=== PATIENT | female | born 1935 | race Asian ===

== ENCOUNTER 2016-11-21 00:17 | Day surgery (SDC) | payer MEDICARE ==
[2016-11-21] VITALS (10 sets, daily range): BP systolic 94–134; BP diastolic 51–81; PULSE 70–83; RESP 14–19; O2SAT 91–98
[~2016-11-21] VITALS: Ht 163.8 cm; Wt 58.0 kg
[~2016-11-21 00:17] MED LIST: ALBU8.5H2 INHALATION; ALPR1TAB7 PO; BECL8.7A5 INHALATION; COD1CAPS6 PO; FURO40TA4 PO; HYDR-3825 PO; LEVO50TA6 PO; LEVO75TA4 PO; METO-272 PO; MONT10TA23 PO; POTA20TA16 PO; WARF2TAB7 PO
--- NOTE | 2016-11-21 09:00 | NUR ---
ADMISSION NOTE FEMALE PT ADMITTED FOR GENERATOR CHANGE. DISCUSSED PLAN OF CARE WITH PT AND FAMILY .SEE ADMIT AND FLOW SHEET
[2016-11-21 09:35] LABS: BASOPHILS % (AUTO) 0.3 % (0-3); EOSINOPHILS % (AUTO) 0.6 % (0-5); MONOCYTES % (AUTO) 16.4 % (4-12); Mean Corpuscular Hemoglobin 31.6 pg (27.0-35.0); Mean Corpuscular Volume 92.6 fL (81-100); NEUTROPHILS % (AUTO) 66.3 % (40-74); Platelet Count 170 bil/L (150-400)
[2016-11-21 10:09] LABS: INR 2.46 ratio
[2016-11-21] MEDS ORDERED: 0.9% Sodium Chloride 1,000 ML ONE (10:12)
[2016-11-21] MEDS ORDERED: Vancomycin 1,000 mg/200 mL D5W IV ONE (10:14)
[2016-11-21] MEDS ORDERED: Vancomycin 1,000 mg Inj ONE (10:46)
[2016-11-21] MEDS ORDERED: Heparin 5,000 Units/500 mL NS Premix IV ONE (10:46)
[2016-11-21] MEDS ORDERED: Bupivacaine-MPF 0.5% 30 mL Inj ONE (10:46)
[2016-11-21] MEDS ORDERED: Water for Injection 50 ML IV ONE (10:47)
[2016-11-21] MEDS ORDERED: 0.9% Sodium Chloride 250 ML ONE (10:47)
[2016-11-21] MEDS ORDERED: fentaNYL-PF 50 mCg/mL 2 mL Inj ONE (10:49)
[2016-11-21] MEDS ORDERED: Vancomycin Inj 1,000 MG in IV Premix 1 EACH IV SCH (10:55)
[2016-11-21] MEDS ORDERED: Vancomycin Inj 1,000 MG in IV Premix 1 EACH IV ONE (10:55)
[2016-11-21] MEDS ORDERED: 0.9% Sodium Chloride 1,000 ML IV SCH (11:26)
[2016-11-21] MEDS ORDERED: Ondansetron 2 mg/mL 2 mL Inj IVPUSH PRN (11:30)
--- NOTE | 2016-11-21 11:55 | NUR ---
POST PROCEDURE NOTE RETURNED FROM COLON THERAPIST. SEE FLOW SHEET
--- NOTE | 2016-11-21 13:55 | OP ---
[address] [address] OPERATIVE REPORT PATIENT: CARI OBREGON : 1935 MR#: [id number] ADMIT: 11/21/2016 JOB ID: [id number] DATE OF SURGERY: 11/21/2016 PREOPERATIVE DIAGNOSIS(ES): Pacemaker battery depletion. POSTOPERATIVE DIAGNOSIS(ES): Pacemaker battery depletion. PROCEDURE PERFORMED: Dual-chamber pacemaker generator replacement. SURGEON: Dakota Laurent MD electrophysiology attending. PHARMACY SPECIALIST: Humberto Hester PA-C IMPLANTED DEVICE: [employer] pulse generator, model DR 2240, serial number [id number]. CHRONIC DEVICES: 1. Biotronik Setrox S 45 cm, serial number [id number], in the atrium. 2. RV lead Biotronik Setrox S 53 cm, serial number [id number]. ANESTHESIA: Bolus dosing of Versed and fentanyl was utilized for an appropriate level of sedation. INDICATION: The patient is a pleasant 81-year-old woman with now chronic atrial fibrillation whose dual-chamber pacemaker has reached ROMARIO. After discussion of the risks and benefits of generator replacement, she opted to proceed. PROCEDURAL DESCRIPTION: Following informed consent, the patient was taken to the EP laboratory in the fasting nonsedated state, where she was prepped and draped in the usual sterile fashion. The left deltopectoral incision was infiltrated with 30 cc of a 50/50 mixture of bupivacaine and lidocaine. Once adequate anesthesia had been achieved, a 3 cm incision was performed overlying the previous surgical scar. Dissection was carried down to the capsule and the leads and generator freed loose of adhesions. The patient is not dependent. The leads were disconnected from the generator and tested through the PSA, showing excellent sensing threshold and impedance on the ventricular lead. The atrial lead showed atrial fibrillation and stable impedances. The pocket was copiously irrigated with antibiotic solution. The two chronic leads were connected to a new pulse generator. The entire system was then replaced into the capsule. The incision was closed with running layers of absorbable suture. The wound was dressed with skin adhesive and a small dressing. At the end of procedure, the needle, sponge, and instrument counts were all correct. COMPLICATIONS: None. ESTIMATED BLOOD LOSS: Negligible. DEVICE MEASURED DATA: 1. Right atrial lead: Atrial fibrillation at 0.8 mV 580 ohms. 2. RV lead: 1 V at 0.4 msec, 11.0 mV, 580 ohms. FINAL PROGRAM PARAMETERS: DDI 60 beats per minute. IMPRESSION: Successful dual-chamber pacemaker generator replacement. PLAN: 1. Bed rest and recovery from the NELSY. 2. Doxycycline 100 mg p.o. daily x1 week. 3. Pacemaker Clinic in one week. 4. Follow up with Humberto Hester PA-C, in six weeks. ATTENDING STATEMENT: Dakota Laurent MD, electrophysiology attending, was present for and supervised/performed all aspects of this procedure.
--- NOTE | 2016-11-21 14:45 | NUR ---
UP IN ROOM. TOLERATED WELL INSTRUCTIONS GIVEN. HOME WITH FAMILY
--- NOTE | 2016-11-21 16:00 | NUR ---
DISCHARGE NOTE UP IN ROOM, TOLERATED WELL. NO COMPLAINTS. HOME WITH Addendum: 11/21/16 at 1601 by HAILEY DONALDSON RN INCORRECT PT. DISREGUARD NOTE
== END 2016-11-21 23:59 | disposition home or self-care (01) ==
LOC: SOUO 00:17
PROVIDERS: ATTEND Internal Medicine Cardiovascular Disease
DX: Z45.010 Encounter for checking and testing of cardiac pacemaker pulse generator [battery] (principal); I48.1 Persistent atrial fibrillation; I49.5 Sick sinus syndrome; Z79.01 Long term (current) use of anticoagulants; Z87.891 Personal history of nicotine dependence; I50.32 Chronic diastolic (congestive) heart failure; I10 Essential (primary) hypertension; E03.9 Hypothyroidism, unspecified; J45.909 Unspecified asthma, uncomplicated
CPT/HCPCS: 33228; 36415; 80048; 85025; 85610; 93005; 99152; 99153; C1785; J1644; J2250; J3010; J3370; J7050